=== PATIENT | female | born 1980 | race Caucasian/White ===

== ENCOUNTER 2021-10-19 02:19 | Emergency (ER) | payer SELFPAY ==
[2021-10-19 02:28] VITALS: BP 163/76; PULSE 135; RESP 16; TEMP 37.7; O2SAT 97; BMI 28.6
== END 2021-10-19 05:20 | disposition left against medical advice (07) ==
LOC: HO.ED 04:47
PROVIDERS: Emergency Provider Emergency Medicine
DX: R40.0 Somnolence (principal)
CPT/HCPCS: 99281